=== PATIENT | female | born 1995 | race Native Hawaiian/Other Pacific Islander ===

== ENCOUNTER 2019-07-16 12:30 | Outpatient (CLI) | payer OTHER ==
--- NOTE | 2019-07-16 15:17 | CARDIAC PROCEDURE NOTE ---
DATE OF SERVICE: 07/16/2019 Physician: Briseida Horner MD, [facility] INDICATION: Chest pain, right bundle branch block. CARDIAC RISK FACTORS: None. DESCRIPTION OF PROCEDURE: After signing informed consent, the patient underwent a Kurt-protocol treadmill stress test with Echo imaging pre and post-exercise. RESTING EKG: Normal sinus rhythm, right bundle branch block, left anterior fascicular block. EKG AT PEAK: No new ST segment or T-wave abnormalities by EKG criteria. Patient exercised for 11 minutes on a Kurt-protocol treadmill stress test. She achieved peak heart rate of 200, (101% predicted maximum heart rate for age) and 13.2 METS. She had moderate to severe shortness of breath at peak, oxygen saturations remained 99 to 100% throughout the entire test. She developed no chest pain during the entire exercise. Blood pressure response was excessive and heart rate recovery fluctuated. (She was admittedly nervous). RESTING HEART RATE: 70. PEAK HEART RATE: 200 (101% PMHR). RESTING BLOOD PRESSURE: 112/63. PEAK BLOOD PRESSURE: 199/47. SUMMARY 1. Abnormal resting EKG. 2. Good exercise tolerance. 3. No ischemic changes by EKG criteria at a good level of stress. 4. She did not develop her typical chest pain symptom, however. 5. Echo images reported separately. 6. Cardiac risk based on EKG criteria alone: Low. cc: Navneet Flanagan DO TD: 07/16/2019 15:08 MTDD
== END 2019-07-16 12:31 | disposition home or self-care (01) ==
LOC: DI 12:30
PROVIDERS: ATTEND Family Medicine
DX: R07.9 Chest pain, unspecified (principal); R94.31 Abnormal electrocardiogram [ECG] [EKG]; I45.10 Unspecified right bundle-branch block
CPT/HCPCS: 93350